=== PATIENT | male | born 1995 ===

== ENCOUNTER 2022-04-13 18:10 | Emergency (ER) | payer OTHER ==
[~2022-04-13] VITALS: Ht 185.4 cm; Wt 79.5 kg
[2022-04-13 18:16] VITALS: BP 119/55
== END 2022-04-13 18:30 | disposition left against medical advice (07) ==
LOC: EMS 18:10
DX: Z20.822 Contact with and (suspected) exposure to COVID-19 (principal); Z53.21 Procedure and treatment not carried out due to patient leaving prior to being seen by health care provider